=== PATIENT | male | born 1965 ===

== ENCOUNTER → 2016-10-31 | Outpatient (CLI) | payer MEDICAID | LOC: SBRMNEURO 21:00 | PROVIDERS: ATTEND Psychiatry & Neurology Sleep Medicine | DX: G47.33 Obstructive sleep apnea (adult) (pediatric) (principal) ==

== ENCOUNTER → 2016-12-01 | Outpatient (CLI) | payer MEDICAID | LOC: SBRMNEURO 20:00 | PROVIDERS: ATTEND Psychiatry & Neurology Sleep Medicine | DX: G47.33 Obstructive sleep apnea (adult) (pediatric) (principal); G47.36 Sleep related hypoventilation in conditions classified elsewhere ==